=== PATIENT | female | born 1980 | race American Indian/Alaskan Native ===

== ENCOUNTER 2019-08-31 08:28 | Emergency (ER) | payer SELFPAY ==
[2019-08-31 08:34] VITALS: BP 126/83
[2019-08-31] MEDS ORDERED: predniSONE 20 MG TAB PO ONE (10:02)
--- NOTE | 2019-08-31 10:03 | Emergency Department Report ---
ED Extremity Problem HPI - General Chief complaint: Neuro Symptoms/Deficit Stated complaint: HANDS NUMB Time Seen by Provider: 08/31/19 09:14 Source: patient Mode of arrival: Ambulatory Limitations: No Limitations - History of Present Illness Initial comments: This 38-year-old female presents to ED complaining of bilateral numbness and tingling of the hands that worsened yesterday. Patient states that this symptoms on exam 4 weeks by yesterday got worse with no relief. 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 Patient does deny history of diabetes, hypertension or any other medical problems. Patient denies any loss of function and sensation of the hands. MD Complaint: other (bilateral hand numbness and tignling) -: month(s) Location: left, right, other (hands) History of Same: Yes (neuropathy of legs) Radiation: none Severity scale (0 -10): 6 Quality: constant Consistency: constant Improves with: nothing Worsens with: nothing Associated Symptoms: denies other symptoms - Related Data Previous Rx's Medication Instructions Recorded Last Taken Type Cyclobenzaprine [Flexeril] 10 mg PO QHS PRN #20 tablet 08/31/19 Unknown Rx Ferrous Sulfate [Ferrous Sulfate 324 mg PO BID #30 tablet. 08/31/19 Unknown Rx 324 MG] predniSONE [Deltasone] 20 mg PO QDAY #5 tab 08/31/19 Unknown Rx Allergies Allergy/AdvReac Type Severity Reaction Status Date / Time No Known Allergies Allergy Unverified 08/31/19 08:29 ED Review of Systems ROS: Stated complaint: HANDS NUMB Other details as noted in HPI Comment: All other systems reviewed and negative ED Past Medical Hx - Past Medical History Previous Medical History?: No - Surgical History Past Surgical History?: No - Social History Smoking Status: Current Every Day Smoker - Medications Home Medications: Home Medications Medication Instructions Recorded Confirmed Last Taken Type Cyclobenzaprine [Flexeril] 10 mg PO QHS PRN #20 tablet 08/31/19 Unknown Rx Ferrous Sulfate [Ferrous Sulfate 324 mg PO BID #30 tablet. 08/31/19 Unknown Rx 324 MG] predniSONE [Deltasone] 20 mg PO QDAY #5 tab 08/31/19 Unknown Rx ED Physical Exam - General Limitations: No Limitations General appearance: alert, in no apparent distress - Head Head exam: Present: atraumatic, normocephalic - Eye Eye exam: Present: normal appearance - ENT ENT exam: Present: mucous membranes moist - Neck Neck exam: Present: normal inspection - Respiratory Respiratory exam: Present: normal lung sounds bilaterally. Absent: respiratory distress - Cardiovascular Cardiovascular Exam: Present: regular rate, normal rhythm. Absent: systolic mur mur, diastolic murmur, rubs, gallop - GI/Abdominal GI/Abdominal exam: Present: soft, normal bowel sounds - Extremities Exam Extremities exam: Present: normal inspection, full ROM, normal capillary refill, other (the). Absent: tenderness, pedal edema, joint swelling - Back Exam Back exam: Present: normal inspection - Neurological Exam Neurological exam: Present: alert, oriented X3, CN II-XII intact, normal gait - Expanded Neurological Exam Expanded Patient oriented to: Present: person, place, time Speech: Present: fluid speech Cerebellar function: Finger to Nose: Normal Sensory exam: Upper Extremity Light Touch: Normal, Upper Extremity Pin Prick: Normal Motor strength exam: RUE: 5, LUE: 5 Best Eye Response ([place]): (4) open spontaneously Best Motor Response ([place]): (6) obeys commands Best Verbal Response ([place]): (5) oriented [place] Total: 15 - Psychiatric Psychiatric exam: Present: normal affect, normal mood - Skin Skin exam: Present: warm, dry, intact, normal color. Absent: rash ED Course Vital Signs 08/31/19 08:29 Temperature 98.1 F Pulse Rate 82 Respiratory 18 Rate Blood Pressure 126/83 O2 Sat by Pulse 98 Oximetry ED Medical Decision Making - Medical Decision Making This 38-year-old female presents with paresthesias of hands. Fasting blood glucose done, within normal limits. . Prednisone in the ED Discussed the patient to follow-up with neurologist. Medicines are normal patient is in no acute distress. Critical care attestation.: If time is entered above; I have spent that time in minutes in the direct care of this critically ill patient, excluding procedure time. ED Disposition Clinical Impression: Hand paresthesia Disposition: DC- TO HOME OR SELFCARE Is pt being admited?: No Does the pt Need Aspirin: No Condition: Stable Instructions: Arthralgia (ED), Tendinitis (ED) Additional Instructions: Make sure to follow up with the primary care physician as discussed. Take all your medications as you've been prescribed. If you have any worsening symptoms or develop new symptoms please return to ED immediately. Referrals: JOHN HERMAN MD [Staff Physician] - 3-5 Days ELEAZAR HOLLOWAY MD [Staff Physician] - 3-5 Days [facility] [Provider Group] - 3-5 Days Forms: Work/School Release Form(ED) Time of Disposition: 10:43
== END 2019-08-31 10:59 | disposition home or self-care (01) ==
LOC: ED 08:28
DX: R20.2 Paresthesia of skin (principal); F17.200 Nicotine dependence, unspecified, uncomplicated
CPT/HCPCS: 82962; 99283; J7512